=== PATIENT | female | born 1950 | race Caucasian/White ===

== ENCOUNTER 2018-01-02 01:45 | Inpatient (IN) ==
[2018-01-02] MEDS ORDERED: OXYCODONE Oral CONC 10 MG/0.5 ML ORAL.SYG SL PRN ×2 (04:44)
[2018-01-02] MEDS ORDERED: Naloxone 0.4 MG/ML INJ IVP PRN (04:44)
[2018-01-02] MEDS ORDERED: D5% in Water 1,000 ML IVC PRN (04:50)
[2018-01-02] MEDS ORDERED: *HR* Dextrose 50 % in Water (Syg) 50 ML SYRINGE IVP PRN (04:50)
[2018-01-02] MEDS ORDERED: Dextrose Gel 15 GM/37.5 ML TUBE PO PRN ×2 (04:50)
[2018-01-02] MEDS ORDERED: Nitroglycerin 0.4 MG TAB.SUBL SL PRN (04:51)
--- NOTE | 2018-01-02 05:05 | Internal Med History&Physical ---
Date of Encounter: 01/02/18 Time of Encounter: 16:20 Internal Medicine - H&P: HPI Chief complaint: Left hip pain Admitted From: Home Plans for Post Hospital Care: Transfer Inp Rehab Fac History of present illness: Ms. Reid is a 67 year old female transferred from [facility] ER for left hip pain. Past medical history is significant for CHF, diabetes, CKD, hypertension, CAD S/P stent, melanoma S/P surgery. Patient said he had a mechanical fall today and feels left hip pain afterwards. Patient denies loss of consciousness. She denies head or neck injury. She also has some bruises on left shoulder area, the range of left shoulder movement is wnl. Patient has mild nausea but no vomiting. Patient also complaining of mild chest pain/discomfort. She denies shortness of breath. She denies fever. In [facility] ER, XR shows left hip fracture. Orthopedic consult was called and the patient was transferred to our hospital for further management. Past Med Surg Social Fam HX - Past Medical History Medical history: arthritis, cancer, CHF, diabetes, hyperlipidemia, hypertension Psychiatric history: depression - Past Surgical History Surgical History: cancer surgery, cholecystectomy, hysterectomy, orthopedic, other - Social History Smoking Status: Never smoker Smokeless Tobacco Status: No Alcohol use: none Drug use: none - Family History Mother Living Status: Age at : 65 Cause of : breast cancer Hx Family Cardiac Disorders: Yes Hx Family Cancer: Yes (Breast Ca) Father Living Status: Age at : 53 Cause of : [place] Hx Family Cardiac Disorders: Yes Hx Family Respiratory Disorders: Yes Sister Living Status: Age at : 49 Cause of : ovarian cancer Hx Family Cancer: Yes (ovarian cancer) Internal Medicine - H&P: Meds Lactobacillus Acidophilus [Acidophilus] 1 each PO DAILY 03/22/16 [History] Amlodipine Besylate 10 mg PO DAILY 03/23/16 [History] Aspirin Enteric Coated [Aspirin EC] 81 mg PO DAILY 03/23/16 [History] Atorvastatin [Lipitor] 40 mg PO DAILY 03/23/16 [History] Carvedilol 12.5 mg PO BID 03/23/16 [History] Lisinopril [Zestril] 40 mg PO DAILY 03/23/16 [History] Spironolactone [Aldactone] 25 mg PO DAILY 03/23/16 [History] Biotin 1,000 mcg PO DAILY 06/24/17 [History] Escitalopram [Lexapro] 20 mg PO DAILY 06/24/17 [History] Gabapentin [Neurontin] 100 mg PO HS 06/24/17 [History] Pioglitazone [Actos] 30 mg PO DAILY 06/24/17 [History] Nitroglycerin [Nitrostat] 0.4 mg SL PRN PRN #30 tab.subl 06/25/17 [Rx] Ticagrelor [Brilinta] 90 mg PO BID #60 tablet 06/25/17 [Rx] Furosemide [Lasix] 40 mg PO DAILY 01/02/18 [History] 3 Allergy/AdvReac Type Severity Reaction Status Date / Time cefdinir [From Omnicef] Allergy Itching Verified 06/25/17 07:21 codeine Allergy Hives Verified 03/22/16 15:27 morphine Allergy Hives Verified 03/22/16 15:27 ondansetron Allergy Vomiting Verified 06/25/17 07:20 [From Zofran (as hydrochloride)] acetaminophen [From Tylenol] AdvReac Vomiting Verified 03/22/16 15:27 All Systems PM: A 10-system review of systems was performed and is negative for pertinent findings except as documented above in the HPI. - Constitutional Vitals: Temp Pulse Resp BP Pulse Ox 97.7 F 63 15 206/65 92 01/02/18 03:42 01/02/18 03:42 01/02/18 03:42 01/02/18 03:42 01/02/18 03:42 General appearance: Present: A&O X 3, no acute distress, answers questions appropriately - Head Head exam: Present: atraumatic, normocephalic - Eye Eye exam: Present: PERRL, conjuntiva pink, sclera anicteric Pupils: Present: PERRL - Neck Neck exam general surgery: Present: supple, trachea midline. Absent: lymphadenopathy - Respiratory Respiratory exam: Present: CTAB. Absent: accessory muscle use, rales, rhonchi, wheezes - Cardiovascular Cardiovascular exam: Present: RRR, +S1, +S2. Absent: diastolic murmur, gallop, rubs, systolic murmur - GI/Abdominal GI/Abdominal exam: Present: normal bowel sounds, soft, no peritoneal signs. Absent: distended, tenderness - Extremities Exam Extremities exam: Present: warm, radial pulses palpable and symmetrical. Absent : calf tenderness, cyanotic, pedal edema Additional comments: Left leg ROM is limited due to pain - Neurological Exam Neurological exam: Present: CN II-XII intact, oriented X3, no focal deficits. Absent: pronater drift, facial droop, speech deficit - Skin Skin exam: Present: dry, intact Internal Med - H&P Results - EKG Data -: EKG Interpreted by Myself EKG shows normal: sinus rhythm Rate: normal - Assessment and plan (1) Hip fracture, left Current Visit: Yes Status: Acute Assessment and plan: Patient has a mechanical fall. Has left hip fracture. Will consult orthopedic. May need surgery. - Keep patient nothing by mouth, IV fluid, pain medications - Patient has complicated cardiology issues and current chest discomfort, will consult cardiology before surgery for risk evaluation. Qualifiers: Encounter type: initial encounter Fracture type: closed Qualified Code(s) : S72.002A - Fracture of unspecified part of neck of left femur, initial encounter for closed fracture (2) CAD (coronary artery disease) Current Visit: No Status: Acute Assessment and plan: S/P recent stent. Patient complaint of chest discomfort. - Continuous cardiac monitoring - Troponin - Cardiac consult, further management/workup per cardiac recommendation Qualifiers: Coronary Disease-Associated Artery/Lesion type: [place] artery [place] vs. transplanted heart: [place] heart Associated angina: without angina Qualified Code(s): I25.10 - Atherosclerotic heart disease of [place] coronary artery without angina pectoris (3) DVT prophylaxis Current Visit: No Status: Acute Assessment and plan: EPCD, may start anticoagulation after surgery (4) Diabetes mellitus type 2, noninsulin dependent Current Visit: No Status: Acute Assessment and plan: Place patient on sliding scale insulin (5) Hypertension Current Visit: No Status: Acute Assessment and plan: Continue home medications. Hydralazine IV when necessary. Control pain to decrease the stress Qualifiers: Hypertension type: essential hypertension Qualified Code(s): I10 - Essential (primary) hypertension - Time Spent With Patient Total time spent is greater than 50% in coordination of care (as documented) at patient's floor/unit and/or counseling patient: 40 minutes Greater than 35 minutes
[2018-01-02 05:06] LABS: Basophils # 0.1 K/mcL (0.0-0.2); Basophils % 0.7 %; Eosinophils # 0.1 K/mcL (0.0-0.6); Eosinophils % 0.8 %; Hemoglobin 10.1 g/dL (11.5-15.4); Immature Granulocytes % 0.4 % (0-4); Lymphocytes # 0.8 K/mcL (0.6-4.6); Lymphocytes % 8.3 %; Mean Corpuscular HGB Conc 29.7 g/dL (31.6-35.5); Mean Corpuscular Hemoglobin 27.2 pg (28.0-33.3); Mean Corpuscular Volume 91.4 fL (83.0-100.0); Mean Platelet Volume 11.3 fL (9.4-12.4); Monocytes # 0.6 K/mcL (0.0-1.3); Monocytes % 5.7 %; Neutrophils # 8.3 K/mcL (1.6-8.9); Platelet Count 235 K/mcL (140-400); Red Blood Count 3.72 M/mcL (3.82-4.97); Red Cell Distribution Width 15.6 % (11.5-14.5); Segmented Neutrophils % 84.1 %
[2018-01-02 05:27] LABS: Alanine Aminotransferase 19 Units/L (7-52); Albumin 3.6 g/dL (3.5-5.7); Albumin/Globulin Ratio 1.2 (1.1-2.2); Alkaline Phosphatase 90 Units/L (34-104); Aspartate Amino Transferase 33 Units/L (13-39); BUN/Creatinine Ratio 24 (6-26); Bilirubin,Total 0.6 mg/dL (0.3-1.0); Blood Urea Nitrogen 19 mg/dL (8-23); Calcium 10.5 mg/dL (8.6-10.3); Carbon Dioxide 25 mEq/L (23-29); Chloride 108 mEq/L (98-107); Globulin 2.9 g/dL (2.4-3.5); Glucose 212 mg/dL (70-105); Osmolality,Calculated 303 (280-300); Potassium 4.1 mEq/L (3.5-5.1); Sodium 142 mEq/L (136-145); Total Protein 6.5 g/dL (6.4-8.9); eGFR For African Americans > 60 (> 60); eGFR For Non-African Americans > 60 (> 60)
[2018-01-02 05:28] LABS: Troponin I < 0.03 ng/mL (< 0.04)
[2018-01-02] MEDS: Insulin LISPRO 300 UNITS/3 ML VIAL SQ SCH ×3 (06:10→17:58)
[2018-01-02] MEDS: 0.9 % Sodium Chloride 1,000 ML IVC SCH ×2 (06:11→17:53)
--- NOTE | 2018-01-02 07:52 | Orthopedic Consult Note ---
Date of Encounter: 01/02/18 Time of Encounter: 07:51 History of Present Illness HPI: Ms. Reid is a 67 year old female Status post slip and fall on a wet surface injuring left hip. Patient reports no head trauma. Complains of left hip pain and inability to family. Past medical history is significant for cardiac stent placement June 2017. 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 Physical exam Alert and oriented 3 Left lower extremity Neurovascular intact Decreased range of motion motion secondary to pain X-rays reviewed displaced comminuted intertrochanteric left hip fracture. Recommendation after patient medically cleared left hip open reduction intramedullary nail fixation. We reviewed the risks and benefits as well as recovery. All questions were answered. The patient agreed to this treatment plan and appeared to understand the plan is reviewed. Past Med Surg Social Fam HX - Past Medical History Medical history: arthritis, cancer, CHF, diabetes, hyperlipidemia, hypertension Psychiatric history: depression - Past Surgical History Surgical History: cancer surgery, cholecystectomy, hysterectomy, orthopedic, other - Social History Smoking Status: Never smoker Smokeless Tobacco Status: No Alcohol use: none Drug use: none - Family History Mother Living Status: Age at : 65 Cause of : breast cancer Hx Family Cardiac Disorders: Yes Hx Family Cancer: Yes (Breast Ca) Father Living Status: Age at : 53 Cause of : [place] Hx Family Cardiac Disorders: Yes Hx Family Respiratory Disorders: Yes Sister Living Status: Age at : 49 Cause of : ovarian cancer Hx Family Cancer: Yes (ovarian cancer) Medications and Allergies Lactobacillus Acidophilus [Acidophilus] 1 each PO DAILY 03/22/16 [History] Amlodipine Besylate 10 mg PO DAILY 03/23/16 [History] Aspirin Enteric Coated [Aspirin EC] 81 mg PO DAILY 03/23/16 [History] Atorvastatin [Lipitor] 40 mg PO DAILY 03/23/16 [History] Carvedilol 12.5 mg PO BID 03/23/16 [History] Lisinopril [Zestril] 40 mg PO DAILY 03/23/16 [History] Spironolactone [Aldactone] 25 mg PO DAILY 03/23/16 [History] Biotin 1,000 mcg PO DAILY 06/24/17 [History] Escitalopram [Lexapro] 20 mg PO DAILY 06/24/17 [History] Gabapentin [Neurontin] 100 mg PO HS 06/24/17 [History] Pioglitazone [Actos] 30 mg PO DAILY 06/24/17 [History] Nitroglycerin [Nitrostat] 0.4 mg SL PRN PRN #30 tab.subl 06/25/17 [Rx] Ticagrelor [Brilinta] 90 mg PO BID #60 tablet 06/25/17 [Rx] Furosemide [Lasix] 40 mg PO DAILY 01/02/18 [History] 3 Allergy/AdvReac Type Severity Reaction Status Date / Time cefdinir [From Omnicef] Allergy Itching Verified 06/25/17 07:21 codeine Allergy Hives Verified 03/22/16 15:27 morphine Allergy Hives Verified 03/22/16 15:27 ondansetron Allergy Vomiting Verified 06/25/17 07:20 [From Zofran (as hydrochloride)] acetaminophen [From Tylenol] AdvReac Vomiting Verified 03/22/16 15:27 All Systems Reviewed: The remainder of the systems were reviewed and are negative Physical Exam - Constitutional Vitals: Temp Pulse Resp BP Pulse Ox 97.9 F 95 16 198/65 96 01/02/18 07:29 01/02/18 07:29 01/02/18 07:29 01/02/18 07:29 01/02/18 07:29 Results - Labs Result Diagrams: 01/02/18 04:54 01/02/18 04:54 Labs: Abnormal lab results RBC 3.72 M/mcL (3.82-4.97) L 01/02/18 04:54 Hgb 10.1 g/dL (11.5-15.4) L 01/02/18 04:54 Hct 34.0 % (35.3-44.9) L 01/02/18 04:54 MCH 27.2 pg (28.0-33.3) L 01/02/18 04:54 MCHC 29.7 g/dL (31.6-35.5) L 01/02/18 04:54 RDW 15.6 % (11.5-14.5) H 01/02/18 04:54 Chloride 108 mEq/L (98-107) H 01/02/18 04:54 Glucose 212 mg/dL (70-105) H 01/02/18 04:54 Calculated Osmolality 303 (280-300) H 01/02/18 04:54 Calcium 10.5 mg/dL (8.6-10.3) H 01/02/18 04:54 B-Natriuretic Peptide 199 pg/mL (Less than 100) H 01/02/18 04:54 H & H 01/02/18 Range/Units 04:54 Hgb 10.1 L (11.5-15.4) g/dL Hct 34.0 L (35.3-44.9) % All other labs normal. Consult Discharge Plan - Plan Referrals: Stacy Barcenas, [employer] PICKER [Primary Care Provider] -
[2018-01-02] MEDS ORDERED: *HR* Promethazine 25 MG/ML VIAL IVP PRN ×2 (08:22→11:27)
--- NOTE | 2018-01-02 09:10 | Internal Med Progress Note ---
<Shankar Baxter - Last Filed: 01/02/18 10:10> Date of Encounter: 01/02/18 Time of Encounter: 09:08 - Assessment and plan (1) Hip fracture, left Current Visit: Yes Status: Acute Assessment and plan: Patient has a mechanical fall resulting in left hip fracture - Seen by orthopedic surgery recommend surgical intervention. - Keep patient nothing by mouth, IV fluid, pain medications - Patient has complicated cardiology issues and current chest discomfort, will await cardiology before surgery for risk evaluation. Qualifiers: Encounter type: initial encounter Fracture type: closed Qualified Code(s) : S72.002A - Fracture of unspecified part of neck of left femur, initial encounter for closed fracture (2) Diabetes mellitus type 2, noninsulin dependent Current Visit: No Status: Acute Assessment and plan: Glucose controlled on inpatient sliding scale low dose - No basal insulin while NPO - Monitor Q4hrs (3) Hypertension Current Visit: No Status: Acute Assessment and plan: Patient has baseline hypertension, elevation likely secondary to pain response. Continue home medications. Hydralazine IV when necessary. Control pain to decrease the stress Qualifiers: Hypertension type: essential hypertension Qualified Code(s): I10 - Essential (primary) hypertension (4) CAD (coronary artery disease) Current Visit: No Status: Acute Assessment and plan: S/P recent stent June 2017 (antiplatelet therapy includes Brillenta and aspirin). Patient complaint of chest discomfort. - Continuous cardiac monitoring - Troponin <0.03 - Cardiac consult, further management/workup per cardiac recommendation Will Need to restart Brillenta and ASA for RCA stent to reduce risk of stent rethrombosis. Qualifiers: Coronary Disease-Associated Artery/Lesion type: [place] artery [place] vs. transplanted heart: [place] heart Associated angina: without angina Qualified Code(s): I25.10 - Atherosclerotic heart disease of [place] coronary artery without angina pectoris (5) DVT prophylaxis Current Visit: No Status: Acute Assessment and plan: EPCD, may start anticoagulation after surgery (6) Left leg cellulitis Current Visit: Yes Status: Acute Assessment and plan: Distal left LE erythema and edema tender to palpation concerning for cellulitis. No abscess or open lesions. Plan: Allergy to Penicillins and Cephalosporins No known hx of MRSA, No purulent discharge. Start Doxycycline 100mg IV BID. - Time Spent With Patient Total time spent is greater than 50% in coordination of care (as documented) at patient's floor/unit and/or counseling patient: - Subjective Interval history: Seen and evaluated at bedside this morning, She is awake alert interactive and says that her left hip pain is 8/10 this morning. She is mildly nauseated but without vomiting this morning. Thorough discussion regarding her past surgical Hx. She had a hx of melanoma of the left distal LE and hx of left proximal humoral fx with previous surgical intervention. right distal humoral fx without intervention. Hx of ovarian cancer s/p resection and surgical site infection resulting in narcotizing wound infection requiring I&D of the abdominal wall. She had a cardiac catherization with LO x1 to the RCA and last echo with EF 65% . She has erythema around her left ankle which has been present for roughly 1 months duration with increasing warmth and tenderness. She denies loss of sensation or movement of her distal left LE. - Constitutional Vitals: Temp Pulse Resp BP Pulse Ox 97.9 F 95 16 198/65 96 01/02/18 07:29 01/02/18 07:29 01/02/18 07:29 01/02/18 07:29 01/02/18 07:29 General appearance: Present: A&O X 3, no acute distress, answers questions appropriately Exam: General: Patient alert, awake, oriented 3, interactive, in no acute distress HEENT: Normocephalic, atraumatic, pupils equal reactive to light, oral mucosa moist, neck supple trachea midline no palpable lymphadenopathy, no thyromegaly. Chest: Symmetric bilateral correlating with respiratory effort, effort nonlabored. Cardiac: Regular rate and rhythm, grade 2/6 systolic ejection murmur. Radial pulses 2+ bilateral, posterior tibial and dorsal pedal pulses 2+ bilateral. Respiratory: Clear to auscultation all lung [place] Abdomen: Soft, nontender, obese, post surgical scars and midline abdominal hernia. positive bowel sounds, no palpable masses appreciated on examination Extremities: LLE is shorter compared to the right. It is also externally rotated and tender to minimal rotation with thigh edema. Erythema and edema around the distal LLE concerning for cellulitis, Right LE has findings of dependent edema and venous stasis. Neurologic: No focal deficits appreciated on examination. Face symmetric, muscle strength symmetric bilateral upper and lower extremities. Internal Medicine: Result - Labs CBC & Chem 7: 01/02/18 04:54 01/02/18 04:54 Labs: Short CBC 01/02/18 Range/Units 04:54 WBC 9.9 (4.3-11.1) K/mcL Hgb 10.1 L (11.5-15.4) g/dL Hct 34.0 L (35.3-44.9) % Plt Count 235 (140-400) K/mcL Neutrophils # 8.3 (1.6-8.9) K/mcL BMP 01/02/18 04:54 Sodium 142 Potassium 4.1 Chloride 108 H Carbon Dioxide 25 BUN 19 Creatinine 0.79 Glucose 212 H Calcium 10.5 H Cardiac Enzymes 01/02/18 Range/Units 04:54 Troponin I < 0.03 (< 0.04) ng/mL Liver Function 01/02/18 Range/Units 04:54 Total Bilirubin 0.6 (0.3-1.0) mg/dL AST 33 (13-39) Units/L ALT 19 (7-52) Units/L Alkaline Phosphatase 90 (34-104) Units/L Albumin 3.6 (3.5-5.7) g/dL - Impressions Impressions Shoulder X-Ray 01/02/18 04:40 IMPRESSION: No acute findings. D/ / Paul Tim MD / Paul Tim MD Interpreting Provider: Paul Tim MD - VTE Documentation of Mechanical Device: Intermittent pneumatic compression device Consult Discharge Plan - Plan Referrals: Stacy Barcenas, [employer]ERSON [Primary Care Provider] - <Chip Harkins - Last Filed: 01/02/18 11:19> Date of Encounter: 01/02/18 - Assessment and plan (1) Diabetes mellitus type 2, noninsulin dependent Current Visit: No Status: Acute (2) Hypertension Current Visit: No Status: Acute Qualifiers: Hypertension type: essential hypertension Qualified Code(s): I10 - Essential (primary) hypertension (3) DVT prophylaxis Current Visit: No Status: Acute (4) CAD (coronary artery disease) Current Visit: No Status: Acute Qualifiers: Coronary Disease-Associated Artery/Lesion type: [place] artery [place] vs. transplanted heart: [place] heart Associated angina: without angina Qualified Code(s): I25.10 - Atherosclerotic heart disease of [place] coronary artery without angina pectoris (5) Hip fracture, left Current Visit: Yes Status: Acute Qualifiers: Encounter type: initial encounter Fracture type: closed Qualified Code(s) : S72.002A - Fracture of unspecified part of neck of left femur, initial encounter for closed fracture (6) Left leg cellulitis Current Visit: Yes Status: Acute - Time Spent With Patient Total time spent is greater than 50% in coordination of care (as documented) at patient's floor/unit and/or counseling patient: - Constitutional Vitals: Temp Pulse Resp BP Pulse Ox 97.9 F 80 16 171/66 94 01/02/18 07:29 01/02/18 09:48 01/02/18 07:29 01/02/18 09:48 01/02/18 09:48 Internal Medicine: Result - Labs CBC & Chem 7: 01/02/18 04:54 01/02/18 04:54 Labs: Short CBC 01/02/18 Range/Units 04:54 WBC 9.9 (4.3-11.1) K/mcL Hgb 10.1 L (11.5-15.4) g/dL Hct 34.0 L (35.3-44.9) % Plt Count 235 (140-400) K/mcL Neutrophils # 8.3 (1.6-8.9) K/mcL BMP 01/02/18 04:54 Sodium 142 Potassium 4.1 Chloride 108 H Carbon Dioxide 25 BUN 19 Creatinine 0.79 Glucose 212 H Calcium 10.5 H Cardiac Enzymes 01/02/18 Range/Units 04:54 Troponin I < 0.03 (< 0.04) ng/mL Liver Function 01/02/18 Range/Units 04:54 Total Bilirubin 0.6 (0.3-1.0) mg/dL AST 33 (13-39) Units/L ALT 19 (7-52) Units/L Alkaline Phosphatase 90 (34-104) Units/L Albumin 3.6 (3.5-5.7) g/dL - Impressions Impressions Shoulder X-Ray 01/02/18 04:40 IMPRESSION: No acute findings. D/ / Paul Tim MD / Paul Tim MD Interpreting Provider: Paul Tim MD - Attending Attestation Left hip fracture Orthopedic surgery to decide on possible surgery Left lower extremity cellulitis start Doxycycline intractable nausea, increase dose of phenergham I examined this patient and my medical decision-making was reviewed with the Resident Physician. I agree with the documented findings, disposition and treatment plan as described except to the extent set forth below.
[2018-01-02] MEDS: Furosemide 40 MG TABLET PO SCH (11:57)
[2018-01-02] MEDS: Lisinopril 20 MG TABLET PO SCH (11:57)
[2018-01-02] MEDS: Lactobacillus 1 EACH CAP.SPRINK PO SCH (11:57)
[2018-01-02 13:29] LABS: Hematocrit 31.5 % (35.3-44.9); Hemoglobin 9.8 g/dL (11.5-15.4)
[2018-01-02] MEDS: Ketorolac 15 MG/ML VIAL IVP PRN (16:26)
[2018-01-02] MEDS: Doxycycline 100 MG in 0.9 % Sodium Chloride Mini Bag 100 ML IVPB SCH (17:53)
--- NOTE | 2018-01-02 20:26 | Cardiology Consult Note ---
Date of Encounter: 01/02/18 Time of Encounter: 10:35 Assessment and Plan (1) Stable angina pectoris Current Visit: Yes Status: Chronic Stable class 1 angina post PCI with LO distal RCA 07/06/17, with resolution of exertional chest pain following percutaneous revascularization, continues on dual antiplatelet tx thru , (2) CAD (coronary artery disease) Current Visit: No Status: Chronic Severe single vessel CAD, post PCI RCA 06/2017 Qualifiers: Coronary Disease-Associated Artery/Lesion type: [place] artery [place] vs. transplanted heart: [place] heart Associated angina: with stable angina Qualified Code(s): I25.118 - Atherosclerotic heart disease of [place] coronary artery with other forms of angina pectoris (3) Hip fracture, left Current Visit: Yes Status: Acute Anticpate surgical correction MON., pt is at moderate cardiovascular risk for planned procedure, long conversation with pt and daughter at bedside, understand and accept risk as risk benefit ratio favors proceeding with planned surgical repair as compared to six weeks of bed rest. Qualifiers: Encounter type: initial encounter Fracture type: closed Qualified Code(s) : S72.002A - Fracture of unspecified part of neck of left femur, initial encounter for closed fracture (4) Hypertension Current Visit: No Status: Chronic Adequately controlled on current medications. Qualifiers: Hypertension type: essential hypertension Qualified Code(s): I10 - Essential (primary) hypertension (5) Diabetes mellitus type 2, noninsulin dependent Current Visit: No Status: Chronic Blood sugars appear fairly well controlled, primary service monitoring. Discussion w patient/family: The assessment and plan as outlined above was discussed with the patient and/or family members who expressed understanding and agreement. All questions were answered. Thank you for involving us in the care of your patient. Please call with any questions. History of Present Illness Consult date: 01/02/18 Requesting physician: Chip Harkins Consult reason: Cardiac risk stratification Chief complaint: left hip pain History of present illness: Ms. Reid is a 67 year old female who had a mechanical fall at home, unable to stand, with immediate severe 10/10 pain in left hip. She was transported to [facility] by squad, found to have a left hip fracture, and transferred to [facility] for further evaluation in anticipation of surgical hip repair. She reports mild left sided chest pain since the fall, notes landed on left shoulder, which resolves with positional changes. She also reports mid sternal chest pain, severe 04/29, provoked by exercise, accompanied by shortness of breath and diaphoresis, lasting up to ten minutes, relieved with rest or SL ntg resolved following PCI with LO 06/2017. She reports is compliant with medication, now on Plavix, Brillinta stopped due to shortness of breath. Past Med Surg Social Fam HX - Past Medical History Medical history: arthritis, cancer, CHF, coronary artery disease, diabetes, hyperlipidemia, hypertension, myocardial infarction Psychiatric history: depression - Past Surgical History Surgical History: cancer surgery, cholecystectomy, hysterectomy, orthopedic, other - Social History Smoking Status: Never smoker Smokeless Tobacco Status: No Alcohol use: none Drug use: none - Family History Mother Living Status: Age at : 65 Cause of : breast cancer Hx Family Cardiac Disorders: Yes Hx Family Cancer: Yes (Breast Ca) Father Living Status: Age at : 53 Cause of : AL Hx Family Cardiac Disorders: Yes Hx Family Respiratory Disorders: Yes Sister Living Status: Age at : 49 Cause of : ovarian cancer Hx Family Cancer: Yes (ovarian cancer) Medications and Allergies Lactobacillus Acidophilus [Acidophilus] 1 each PO DAILY 03/22/16 [History] Aspirin Enteric Coated [Aspirin EC] 81 mg PO DAILY 03/23/16 [History] Atorvastatin [Lipitor] 40 mg PO DAILY 03/23/16 [History] Carvedilol 12.5 mg PO BID 03/23/16 [History] Lisinopril [Zestril] 40 mg PO DAILY 03/23/16 [History] Spironolactone [Aldactone] 25 mg PO DAILY 03/23/16 [History] Biotin 1,000 mcg PO DAILY 06/24/17 [History] Escitalopram [Lexapro] 20 mg PO DAILY 06/24/17 [History] Gabapentin [Neurontin] 100 mg PO HS 06/24/17 [History] Pioglitazone [Actos] 30 mg PO DAILY 06/24/17 [History] Nitroglycerin [Nitrostat] 0.4 mg SL PRN PRN #30 tab.subl 06/25/17 [Rx] Alendronate Sodium [Fosamax] 70 mg PO QWEEK 01/02/18 [History] Clopidogrel [Plavix] 75 mg PO DAILY 01/02/18 [History] Furosemide [Lasix] 40 mg PO DAILY 01/02/18 [History] Potassium Chloride [K-Tab ER] 20 meq PO DAILY 01/02/18 [History] 3 Allergy/AdvReac Type Severity Reaction Status Date / Time cefdinir [From Omnicef] Allergy Itching Verified 06/25/17 07:21 codeine Allergy Hives Verified 03/22/16 15:27 morphine Allergy Hives Verified 03/22/16 15:27 ondansetron Allergy Vomiting Verified 06/25/17 07:20 [From Zofran (as hydrochloride)] acetaminophen [From Tylenol] AdvReac Vomiting Verified 03/22/16 15:27 All Systems Review: The remainder of the systems were reviewed and are negative - Constitutional Constitutional: fatigue - Cardiovascular Cardiovascular: chest pain at rest (new positional chest pain, relieved with movement.) - Musculoskeletal Musculoskeletal: other Physical Examination Vital Signs, Last 4 Hours Temp Pulse Resp BP Pulse Ox 01/02/18 19:44 95 01/02/18 18:36 99.8 F H 80 16 154/61 95 General: Conversant, No Apparent Distress HEENT: Atraumatic, Normocephaly, Mucus Membranes Moist Neck: Normal carotid pulses Cardiac: Reg Rate and Rhythm, Normal S1 and S2, No Murmur Lungs: Normal Breath Sounds, No Wheeze, Rales, Rhonchi (poor inspiratory effort) Neuro: Alert and responsive, No focal deficits noted Abdomen: Non-Tender (morbidly obese) Skin: No rashes noted on visualized skin Musculoskeletal: Other (left leg slightly shortened, externally rotated, unable to move left hip without pain. ) Extremities: No Clubbing, No Cyanosis, No Edema, Normal Pulses Results 01/02/18 13:14 01/02/18 04:54 Lab Results 01/02/18 01/02/18 01/02/18 04:54 04:54 04:54 WBC 9.9 Hgb 10.1 L Hct 34.0 L Plt Count 235 Sodium 142 Potassium 4.1 Chloride 108 H Carbon Dioxide 25 BUN 19 Creatinine 0.79 Glucose 212 H Calcium 10.5 H Total Bilirubin 0.6 AST 33 ALT 19 Alkaline Phosphatase 90 Troponin I < 0.03 B-Natriuretic Peptide 199 H 01/02/18 13:14 WBC Hgb 9.8 L Hct 31.5 L Plt Count Sodium Potassium Chloride Carbon Dioxide BUN Creatinine Glucose Calcium Total Bilirubin AST ALT Alkaline Phosphatase Troponin I B-Natriuretic Peptide - EKG Interpretation EKG results cardiology: personally reviewed Consult Discharge Plan - Plan Referrals: Stacy Barcenas CNP [Primary Care Provider] -
[2018-01-03] MEDS: Ketorolac 15 MG/ML VIAL IVP PRN ×4 (00:04→23:44)
[2018-01-03] MEDS: Insulin LISPRO 300 UNITS/3 ML VIAL SQ SCH ×4 (00:12→16:44)
[2018-01-03 01:26] LABS: Basophils % 0.5 %; Eosinophils # 0.1 K/mcL (0.0-0.6); Eosinophils % 0.6 %; Hematocrit 29.8 % (35.3-44.9); Hemoglobin 9.1 g/dL (11.5-15.4); Immature Granulocytes % 0.6 % (0-4); Lymphocytes # 1.6 K/mcL (0.6-4.6); Lymphocytes % 18.8 %; Mean Corpuscular HGB Conc 30.5 g/dL (31.6-35.5); Mean Corpuscular Hemoglobin 27.4 pg (28.0-33.3); Mean Corpuscular Volume 89.8 fL (83.0-100.0); Mean Platelet Volume 11.4 fL (9.4-12.4); Monocytes # 0.9 K/mcL (0.0-1.3); Monocytes % 10.5 %; Neutrophils # 5.8 K/mcL (1.6-8.9); Platelet Count 217 K/mcL (140-400); Red Blood Count 3.32 M/mcL (3.82-4.97); Red Cell Distribution Width 15.8 % (11.5-14.5)
[2018-01-03 01:46] LABS: Alanine Aminotransferase 14 Units/L (7-52); Albumin 3.1 g/dL (3.5-5.7); Albumin/Globulin Ratio 1.2 (1.1-2.2); Alkaline Phosphatase 73 Units/L (34-104); Aspartate Amino Transferase 18 Units/L (13-39); BUN/Creatinine Ratio 22 (6-26); Bilirubin,Total 0.7 mg/dL (0.3-1.0); Blood Urea Nitrogen 21 mg/dL (8-23); Calcium 9.9 mg/dL (8.6-10.3); Carbon Dioxide 25 mEq/L (23-29); Chloride 112 mEq/L (98-107); Globulin 2.5 g/dL (2.4-3.5); Glucose 152 mg/dL (70-105); Osmolality,Calculated 298 (280-300); Potassium 3.9 mEq/L (3.5-5.1); Sodium 141 mEq/L (136-145); Total Protein 5.6 g/dL (6.4-8.9); eGFR For African Americans > 60 (> 60); eGFR For Non-African Americans 58 (> 60)
[2018-01-03] MEDS: Doxycycline 100 MG in 0.9 % Sodium Chloride Mini Bag 100 ML IVPB SCH ×2 (05:57→16:44)
--- NOTE | 2018-01-03 06:19 | Orthopedics Progress Note ---
Date of Encounter: 01/03/18 Time of Encounter: 06:19 Subjective Interval history: Patient seen this morning for left hip surgery questions answered. Objective Vital signs: Vital Signs Temp Pulse Resp BP Pulse Ox 01/03/18 03:57 98.6 F 69 16 174/67 93 01/02/18 23:38 98.9 F 81 22 185/64 94 01/02/18 19:44 95 01/02/18 18:36 99.8 F H 80 16 154/61 95 01/02/18 16:02 98.8 F 80 16 165/61 93 01/02/18 11:47 98.5 F 78 16 169/73 95 01/02/18 09:48 80 171/66 94 01/02/18 07:29 97.9 F 95 16 198/65 96 Intake and Output 01/02/18 01/02/18 01/03/18 15:59 23:59 07:59 Intake Total 1490 / 1490 0 / 0 Output Total 0 / 0 125 / 125 Balance 1490 / 1490 -125 / -125 Intake: IV Fluids 1100 / 1100 0.9 % Sodium Chloride 1,000 ML 1000 / 1000 @ 90 mls/hr IVC .[id number] SHANI Rx# :[id number] Doxycycline 100 MG In 0.9 % 100 / 100 Sodium Chloride (Mini-Bag +) 100 ML @ 100 mls/hr IVPB Q12HR SHANI Rx#:[id number] Oral 390 / 390 0 / 0 Output: Urine 0 / 0 125 / 125 Other: Meal Lunch Dinner Percent of Meal Consumed 0% 15% # Voids 2 Blood Glucose* 163 192 133 - Labs CBC & BMP: 01/03/18 01:06 01/03/18 01:06 Labs: Abnormal lab results RBC 3.32 M/mcL (3.82-4.97) L 01/03/18 01:06 Hgb 9.1 g/dL (11.5-15.4) L 01/03/18 01:06 Hct 29.8 % (35.3-44.9) L 01/03/18 01:06 MCH 27.4 pg (28.0-33.3) L 01/03/18 01:06 MCHC 30.5 g/dL (31.6-35.5) L 01/03/18 01:06 RDW 15.8 % (11.5-14.5) H 01/03/18 01:06 Chloride 112 mEq/L (98-107) H 01/03/18 01:06 Est GFR (Non-Af Amer) 58 (> 60) L 01/03/18 01:06 Glucose 152 mg/dL (70-105) H 01/03/18 01:06 POC Glucose 133 mg/dL (70-99) H 01/03/18 05:50 B-Natriuretic Peptide 199 pg/mL (Less than 100) H 01/02/18 04:54 Serum Total Protein 5.6 g/dL (6.4-8.9) L 01/03/18 01:06 Albumin 3.1 g/dL (3.5-5.7) L 01/03/18 01:06 - VTE Documentation of Mechanical Device: Intermittent pneumatic compression device Consult Discharge Plan - Plan Referrals: Stacy Barcenas, [employer] [Primary Care Provider] -
[2018-01-03] MEDS: Lisinopril 20 MG TABLET PO SCH (07:23)
[2018-01-03] MEDS: Furosemide 40 MG TABLET PO SCH (07:23)
[2018-01-03] MEDS: Lactobacillus 1 EACH CAP.SPRINK PO SCH (07:24)
--- NOTE | 2018-01-03 09:12 | Internal Med Progress Note ---
<Norris Valdez - Last Filed: 01/03/18 10:51> Date of Encounter: 01/03/18 Time of Encounter: 09:12 - Assessment and plan (1) Hip fracture, left Current Visit: Yes Status: Acute Assessment and plan: Patient has a mechanical fall resulting in left hip fracture as demonstrated on Xray. - Seen by orthopedic surgery recommend surgical intervention this evening. - Keep patient nothing by mouth, IV fluid, pain medications - Patient has complicated cardiology issues and current chest discomfort, cardiology has evaluated as below. Qualifiers: Encounter type: initial encounter Fracture type: closed Qualified Code(s) : S72.002A - Fracture of unspecified part of neck of left femur, initial encounter for closed fracture (2) Diabetes mellitus type 2, noninsulin dependent Current Visit: Yes Status: Chronic Assessment and plan: Glucose controlled on inpatient sliding scale low dose - No basal insulin while NPO - Monitor Q4hrs (3) Hypertension Current Visit: Yes Status: Chronic Assessment and plan: Patient has baseline hypertension, elevation likely secondary to pain response. Most recent BP was 164/73 this morning. Will allow for mildly elevated BP today as she is going to be sedated this evening and at risk for hypotension. Hydralazine IV when necessary. Control pain to decrease the stress Qualifiers: Hypertension type: essential hypertension Qualified Code(s): I10 - Essential (primary) hypertension (4) CAD (coronary artery disease) Current Visit: Yes Status: Chronic Assessment and plan: S/P recent stent June 2017 (antiplatelet therapy includes Brillenta and aspirin). Chest discomfort resolved. - Continuous cardiac monitoring - Troponin <0.03 - Cardiac consult, agree to proceed with surgery, moderate risk which has been explained to the patient. Will Need to restart Brillenta and ASA for RCA stent to reduce risk of stent rethrombosis after surgery. Qualifiers: Coronary Disease-Associated Artery/Lesion type: [place] artery [place] vs. transplanted heart: [place] heart Associated angina: with stable angina Qualified Code(s): I25.118 - Atherosclerotic heart disease of [place] coronary artery with other forms of angina pectoris (5) DVT prophylaxis Current Visit: Yes Status: Acute Assessment and plan: EPCD, may start anticoagulation after surgery (6) Left leg cellulitis Current Visit: Yes Status: Acute Assessment and plan: Distal left LE erythema and edema tender to palpation concerning for cellulitis. No abscess or open lesions. 01/03: Erythema improved. Continue doxycycline. Plan: Allergy to Penicillins and Cephalosporins No known hx of MRSA, No purulent discharge. Start Doxycycline 100mg IV BID. - Time Spent With Patient Total time spent is greater than 50% in coordination of care (as documented) at patient's floor/unit and/or counseling patient: 25 - 35 minutes - Subjective Interval history: Patient seen and examined at bedside. She states that overall she is feeling better but is continuing to have pain when she gets up to use the restroom. No further complaints. At rest, pain is 1/10. She is scheduled for surgery this evening. No further complaints of CP, SOB, n/v, fevers, chills. - Constitutional Vitals: Temp Pulse Resp BP Pulse Ox 98.5 F 73 16 164/73 95 01/03/18 07:00 01/03/18 07:00 01/03/18 07:00 01/03/18 07:00 01/03/18 07:00 General appearance: Present: A&O X 3, no acute distress, answers questions appropriately Exam: Gen.: Vitals noted. No acute distress. AAOx3 HEENT: oropharynx clear, Normocephalic, atraumatic, MMM Cardiac: RRR, holosystolic murmur present, +S1/S2 Pulmonary: CTA bilaterally, no wheezes, rales or rhonchi, equal chest expansion Abdomen: soft, nontender, BS noted, no guarding, no rebound. MSK: ROM not tested due to known fracture. Mildly tender to palpation over left hip. no joint swelling noted Extremities: no BLE edema, nontender calf, no cyanosis or clubbing Neuro: A&Ox3, moves all extremities, no focal deficits Psych: Appropriate mood and behavior Internal Medicine: Result - Labs CBC & Chem 7: 01/03/18 01:06 01/03/18 01:06 Labs: Short CBC 01/02/18 01/03/18 Range/Units 13:14 01:06 WBC 8.3 (4.3-11.1) K/mcL Hgb 9.8 L 9.1 L (11.5-15.4) g/dL Hct 31.5 L 29.8 L (35.3-44.9) % Plt Count 217 (140-400) K/mcL Neutrophils # 5.8 (1.6-8.9) K/mcL BMP 01/03/18 01:06 Sodium 141 Potassium 3.9 Chloride 112 H Carbon Dioxide 25 BUN 21 Creatinine 0.96 Glucose 152 H Calcium 9.9 Liver Function 01/03/18 Range/Units 01:06 Total Bilirubin 0.7 (0.3-1.0) mg/dL AST 18 (13-39) Units/L ALT 14 (7-52) Units/L Alkaline Phosphatase 73 (34-104) Units/L Albumin 3.1 L (3.5-5.7) g/dL - VTE Documentation of Mechanical Device: Intermittent pneumatic compression device Consult Discharge Plan - Plan Referrals: Stacy Barcenas, [employer] [Primary Care Provider] - <Chip Harkins - Last Filed: 01/03/18 13:02> Date of Encounter: 01/03/18 - Assessment and plan (1) Diabetes mellitus type 2, noninsulin dependent Current Visit: Yes Status: Chronic (2) Hypertension Current Visit: Yes Status: Chronic Qualifiers: Hypertension type: essential hypertension Qualified Code(s): I10 - Essential (primary) hypertension (3) DVT prophylaxis Current Visit: Yes Status: Acute (4) CAD (coronary artery disease) Current Visit: Yes Status: Chronic Qualifiers: Coronary Disease-Associated Artery/Lesion type: [place] artery [place] vs. transplanted heart: [place] heart Associated angina: with stable angina Qualified Code(s): I25.118 - Atherosclerotic heart disease of [place] coronary artery with other forms of angina pectoris (5) Hip fracture, left Current Visit: Yes Status: Acute Qualifiers: Encounter type: initial encounter Fracture type: closed Qualified Code(s) : S72.002A - Fracture of unspecified part of neck of left femur, initial encounter for closed fracture (6) Left leg cellulitis Current Visit: Yes Status: Acute - Time Spent With Patient Total time spent is greater than 50% in coordination of care (as documented) at patient's floor/unit and/or counseling patient: - Constitutional Vitals: Temp Pulse Resp BP Pulse Ox 98.2 F 78 16 156/78 96 01/03/18 09:40 01/03/18 09:40 01/03/18 09:40 01/03/18 09:40 01/03/18 09:40 Internal Medicine: Result - Labs CBC & Chem 7: 01/03/18 01:06 01/03/18 01:06 Labs: Short CBC 01/02/18 01/03/18 Range/Units 13:14 01:06 WBC 8.3 (4.3-11.1) K/mcL Hgb 9.8 L 9.1 L (11.5-15.4) g/dL Hct 31.5 L 29.8 L (35.3-44.9) % Plt Count 217 (140-400) K/mcL Neutrophils # 5.8 (1.6-8.9) K/mcL BMP 01/03/18 01:06 Sodium 141 Potassium 3.9 Chloride 112 H Carbon Dioxide 25 BUN 21 Creatinine 0.96 Glucose 152 H Calcium 9.9 Liver Function 01/03/18 Range/Units 01:06 Total Bilirubin 0.7 (0.3-1.0) mg/dL AST 18 (13-39) Units/L ALT 14 (7-52) Units/L Alkaline Phosphatase 73 (34-104) Units/L Albumin 3.1 L (3.5-5.7) g/dL - Attending Attestation Left hip fracture Orthopedic surgery to perform surgery today Left lower extremity cellulitis continue Doxycycline day #2 intractable nausea, increase dose of phenergham I examined this patient and my medical decision-making was reviewed with the Resident Physician. I agree with the documented findings, disposition and treatment plan as described except to the extent set forth below.
--- NOTE | 2018-01-03 10:17 | Event Note ---
Date of Encounter: 01/03/18 Time of Encounter: 08:15 Discussed with patient at bedside planned surgical procedure and indications as well as risks and benefits. Patient verbalized understanding and intent to proceed with surgical intervention. Informed consent obtained. Kiah SCHROEDER present during this exchange as well. Patient alert and oriented to person, place, and time.
--- NOTE | 2018-01-03 18:47 | Anesthesia Evaluation PreOp ---
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 Other Medical History: Diabetes Type II, Other (Obese) Anesthesia History: No Prior Anesthetic Complications : No Alcohol Use: none Drug use: none Medications and Allergies Lactobacillus Acidophilus [Acidophilus] 1 each PO DAILY 03/22/16 [History] Aspirin Enteric Coated [Aspirin EC] 81 mg PO DAILY 03/23/16 [History] Atorvastatin [Lipitor] 40 mg PO DAILY 03/23/16 [History] Carvedilol 12.5 mg PO BID 03/23/16 [History] Lisinopril [Zestril] 40 mg PO DAILY 03/23/16 [History] Spironolactone [Aldactone] 25 mg PO DAILY 03/23/16 [History] Biotin 1,000 mcg PO DAILY 06/24/17 [History] Escitalopram [Lexapro] 20 mg PO DAILY 06/24/17 [History] Gabapentin [Neurontin] 100 mg PO HS 06/24/17 [History] Pioglitazone [Actos] 30 mg PO DAILY 06/24/17 [History] Nitroglycerin [Nitrostat] 0.4 mg SL PRN PRN #30 tab.subl 06/25/17 [Rx] Alendronate Sodium [Fosamax] 70 mg PO QWEEK 01/02/18 [History] Clopidogrel [Plavix] 75 mg PO DAILY 01/02/18 [History] Furosemide [Lasix] 40 mg PO DAILY 01/02/18 [History] Potassium Chloride [K-Tab ER] 20 meq PO DAILY 01/02/18 [History] 3 Allergy/AdvReac Type Severity Reaction Status Date / Time cefdinir [From Omnicef] Allergy Itching Verified 06/25/17 07:21 codeine Allergy Hives Verified 03/22/16 15:27 morphine Allergy Hives Verified 03/22/16 15:27 ondansetron Allergy Vomiting Verified 06/25/17 07:20 [From Zofran (as hydrochloride)] acetaminophen [From Tylenol] AdvReac Vomiting Verified 03/22/16 15:27 - Meds/Allergy Pre-op Review Medications Reviewed: Yes Allergies Reviewed: Yes Beta Blockers on Current Med List: Yes (Coreg today [id number]) Anesthesia Results - Labs 01/03/18 01:06 01/03/18 01:06 - Imaging EKG: report reviewed (Sinus Memo Borderline Left Axcis Deviation) Additional studies: EF 60-65%, moderate diastolic dysfunction, mild pulm htn Anesthesia Exam Vital Signs/O2 Sat/Glucose, Most Current Temp Pulse Resp BP Pulse Ox 01/03/18 15:00 98.8 F 58 18 184/68 98 Height: 5'7 Weight: 248 lbs NPO (# of Hours): MN Pain Scale: 0 - HEENT Pupil (Motor): Pupils equal, EOMI Mallampati: III Teeth: Edentulous (no upper dentition) Oral Opening: Less than or equal to 3 - MAIL MACHINE OPERATOR LOC: Oriented MAIL MACHINE OPERATOR Motor: Normal RUE, Normal LUE, Normal RLE, Normal LLE, Normal Face MAIL MACHINE OPERATOR Sensory: Normal: RUE, LUE, RLE, LLE, Face - Cardiac Rhythm: Regular Murmur: None JVD: No Carotid Bruit: No - Pulmonary Breath Sounds: bilateral Clear Respiratory Effort: Symmetrical Anesthesia Assess/Plan ASA Score: 3 (HTN CAD DM Obese) Modified [place] Scale for Level of Consciousness: Cooperative, oriented, and tranquil Anesthetic Plan: General Monitoring Plan: Standard Monitors Recovery Plan: PACU (Discussed GA, moderate risk for anesthesia and surgery, agrees to proceed)
[2018-01-03] MEDS ORDERED: *HR* Midazolam HCl 2 MG/2 ML VIAL ONE (19:07)
[2018-01-03] MEDS ORDERED: *HR* FentaNYL (PF) 100 MCG/2 ML VIAL ONE (19:07)
[2018-01-03] MEDS ORDERED: Dexamethasone 4 MG/ML VIAL ONE (19:08)
[2018-01-03] MEDS ORDERED: Ondansetron 4 MG/2 ML VIAL ONE (19:08)
[2018-01-03] MEDS ORDERED: Lidocaine -MPF 2% 2 ML VIAL ONE (19:08)
[2018-01-03] MEDS ORDERED: *HR* Propofol 200 MG/20 ML VIAL IVP ONE (19:08)
[2018-01-03] MEDS ORDERED: Acetaminophen IV 1,000 MG/100 ML INFUS..BTL ONE (19:10)
[2018-01-03] MEDS ORDERED: Famotidine 20 MG/2 ML VIAL ONE (19:11)
[2018-01-03] MEDS ORDERED: *HR* FentaNYL (PF) 100 MCG/2 ML VIAL IVP PRN (19:57)
[2018-01-03] MEDS ORDERED: *HR* Promethazine 25 MG/ML VIAL IVP PRN ×2 (19:57→21:06)
[2018-01-03] MEDS ORDERED: *HR* Meperidine 25 MG/ML SYRINGE IVP PRN (19:57)
[2018-01-03] MEDS ORDERED: Ondansetron 4 MG/2 ML VIAL IVP ONE (19:57)
[2018-01-03] MEDS ORDERED: Ringers Solution, Lactated 1,000 ML IVC SCH (20:00)
--- NOTE | 2018-01-03 20:02 | Orthopedic Operative Note ---
Date of procedure: 01/03/18 Pre-op diagnosis: Left intertrochanteric/subtrochanteric hip fracture Post-op diagnosis: same Procedure: Procedure: Left hip open reduction intramedullary nail fixation Estimated blood loss: 100 cc Hardware: Metal: 10 x 130 degree to 35 mm Synthes TFN, 110 mm mm helical blade, 36 mm distal locking bolt Operative procedure: The patient was brought to the operating room and placed on the operating room table. After general anesthesia was administered the well leg was place in the well leg johnasen and the operative leg was placed in the fracture leg johansen. All pressure points were padded appropriately. The operative extremity was prepped and draped in the sterile surgical fashion patient received IV antibiotic prior to skin incision. A standard direct lateral approach was made over the entry point of the greater trochanter, the incision was made through the skin and subcutaneous tissue hemostasis was obtained with Bovie cautery. Using careful sharp dissection the fascia was identified and incised, flouroscopic assistance was used to identify the entry point. The guidepin was placed at the entry point using fluroscopic assistance, it was over reamed with the proximal reamer. The 10 x 1 30 degree 235 mm nail was placed through the entry hole, across the fracture site into the distal fragment the position was confirmed with fluroscopy. A guide pin was placed through the proximal locking guide from the lateral femur through the nail across the fracture site into the femoral head, it was over reamed with the reamer. The 110 mm helical blade was placed over the guide pin through the nail into the femoral head, locked in place with the proximal locking bolt. 36 mm Distal locking bolt was placed through the distal locking guide. position of hardware and fracture reduction found to be acceptable with fluroscopic assistance. The wound was irrigated. The wound was closed by the PA. Fascia was closed with a running #2 PDS suture. The deep tissue was irrigated and closed deep with #1 PDS suture superficially with 0 PDS suture and skin was closed with skin johnson The patient was placed in a sterile dressing The patient was extubated and transferred to the recovery room in stable condition. Anesthesia: GETA Surgeon: Polo Hdz Was there an information technology assistant present: No Estimated blood loss (cc): 100 Condition: stable Disposition: PACU
[2018-01-03] MEDS ORDERED: Dextrose Gel 15 GM/37.5 ML TUBE PO PRN ×2 (21:06)
[2018-01-03] MEDS ORDERED: Naloxone 0.4 MG/ML INJ IVP PRN ×2 (21:06)
[2018-01-03] MEDS ORDERED: D5% in Water 1,000 ML IVC PRN (21:06)
[2018-01-03] MEDS ORDERED: OXYCODONE Oral CONC 10 MG/0.5 ML ORAL.SYG SL PRN ×2 (21:06)
[2018-01-03] MEDS ORDERED: Nitroglycerin 0.4 MG TAB.SUBL SL PRN (21:06)
[2018-01-03] MEDS ORDERED: *HR* Dextrose 50 % in Water (Syg) 50 ML SYRINGE IVP PRN (21:06)
[2018-01-03 21:27] LABS: Hematocrit 29.6 % (35.3-44.9); Hemoglobin 8.7 g/dL (11.5-15.4)
--- NOTE | 2018-01-03 21:29 | Anesthesia Evaluation Post Op ---
Date of Encounter: 01/03/18 Time of Encounter: 21:28 - Vital Signs Vital Signs: Vital Signs/O2 Sat, Most Current Temp Pulse Resp BP Pulse Ox 97.9 F 60 14 179/79 100 01/03/18 21:09 01/03/18 21:09 01/03/18 21:09 01/03/18 21:09 01/03/18 21:09 - Lungs Lungs: Clear Ascult./Percussion - Airway Airway: Non-obstructed - Cardiovascular Regular Rate - Mental Status Mental Status: Alert & Oriented, Answers Appropriately - Pain Pain Scale: 0 Pain Scale used: Numeric (1 - 10) - Nausea Vomiting Nausea Vomiting: Not Present - Hydration Hydration: NPO - Discharge PostOp Status: Transfer Patient to floor
[2018-01-04] MEDS ORDERED: CeFAZolin Pre 2,000 MG/100 ML 2,000 MG/100 ML BAG IVPB SCH
[2018-01-04] MEDS: ceFAZolin 2,000 MG in 0.9 % Sodium Chloride 100 ML IVPB SCH ×2 (00:10→09:53)
[2018-01-04] MEDS: Insulin LISPRO 300 UNITS/3 ML VIAL SQ SCH ×5 (01:11→20:28)
--- NOTE | 2018-01-04 06:19 | Orthopedics Progress Note ---
Date of Encounter: 01/04/18 Time of Encounter: 06:18 Subjective Interval history: PPatient was seen this morning doing well without complaints. Afebrile vital signs stable. Operative extremity: Neurovascularly intact Dressing clean dry and intact Calves nontender Assessment and plan: Continue with postoperative care Objective Vital signs: Vital Signs Temp Pulse Resp BP Pulse Ox 01/04/18 03:53 98.5 F 64 18 156/76 93 01/04/18 00:00 97.6 F 58 16 128/82 98 01/03/18 23:29 97.5 F L 58 18 134/74 98 01/03/18 22:00 98 01/03/18 21:09 97.9 F 60 14 179/79 100 01/03/18 20:54 98.7 F 66 16 173/62 96 01/03/18 20:44 98.6 F 64 16 168/60 98 01/03/18 20:34 98.6 F 66 16 180/56 97 01/03/18 20:24 98.6 F 65 16 178/57 98 01/03/18 15:00 98.8 F 58 18 184/68 98 01/03/18 09:40 98.2 F 78 16 156/78 96 01/03/18 07:00 98.5 F 73 16 164/73 95 Intake and Output 01/03/18 01/03/18 01/04/18 15:59 23:59 07:59 Output Total 500 / 500 100 / 100 Balance -500 / -500 -100 / -100 Output: Urine 500 / 500 Estimated Blood Loss 100 / 100 Other: # Voids 1 Blood Glucose* 138 161 182 - Labs CBC & BMP: 01/03/18 20:49 01/03/18 01:06 Labs: Abnormal lab results RBC 3.32 M/mcL (3.82-4.97) L 01/03/18 01:06 Hgb 8.7 g/dL (11.5-15.4) L 01/03/18 20:49 Hct 29.6 % (35.3-44.9) L 01/03/18 20:49 MCH 27.4 pg (28.0-33.3) L 01/03/18 01:06 MCHC 30.5 g/dL (31.6-35.5) L 01/03/18 01:06 RDW 15.8 % (11.5-14.5) H 01/03/18 01:06 Chloride 112 mEq/L (98-107) H 01/03/18 01:06 Est GFR (Non-Af Amer) 58 (> 60) L 01/03/18 01:06 Glucose 152 mg/dL (70-105) H 01/03/18 01:06 POC Glucose 182 mg/dL (70-99) H 01/04/18 00:50 B-Natriuretic Peptide 199 pg/mL (Less than 100) H 01/02/18 04:54 Serum Total Protein 5.6 g/dL (6.4-8.9) L 01/03/18 01:06 Albumin 3.1 g/dL (3.5-5.7) L 01/03/18 01:06 - VTE Documentation of Mechanical Device: Intermittent pneumatic compression device Consult Discharge Plan - Plan Referrals: Stacy Barcenas, [employer]OUGH AND TRUEING MACHINE OPERATOR [Primary Care Provider] -
[2018-01-04 06:37] LABS: Basophils % 0.4 %; Eosinophils # 0.1 K/mcL (0.0-0.6); Eosinophils % 0.9 %; Hematocrit 24.4 % (35.3-44.9); Hemoglobin 7.4 g/dL (11.5-15.4); Immature Granulocytes % 0.5 % (0-4); Lymphocytes # 1.4 K/mcL (0.6-4.6); Lymphocytes % 14.2 %; Mean Corpuscular HGB Conc 30.3 g/dL (31.6-35.5); Mean Corpuscular Hemoglobin 27.9 pg (28.0-33.3); Mean Corpuscular Volume 92.1 fL (83.0-100.0); Mean Platelet Volume 11.4 fL (9.4-12.4); Monocytes # 1.1 K/mcL (0.0-1.3); Monocytes % 11.1 %; Neutrophils # 7.2 K/mcL (1.6-8.9); Nucleated Red Blood Cells 0.2 /100 WBC (0); Platelet Count 270 K/mcL (140-400); Red Blood Count 2.65 M/mcL (3.82-4.97); Red Cell Distribution Width 15.9 % (11.5-14.5); Segmented Neutrophils % 72.9 %
[2018-01-04 07:02] LABS: BUN/Creatinine Ratio 23 (6-26); Blood Urea Nitrogen 24 mg/dL (8-23); Calcium 9.4 mg/dL (8.6-10.3); Carbon Dioxide 26 mEq/L (23-29); Chloride 111 mEq/L (98-107); Glucose 148 mg/dL (70-105); Osmolality,Calculated 301 (280-300); Potassium 4.4 mEq/L (3.5-5.1); Sodium 142 mEq/L (136-145); eGFR For African Americans > 60 (> 60); eGFR For Non-African Americans 53 (> 60)
[2018-01-04] MEDS: Doxycycline 100 MG in 0.9 % Sodium Chloride Mini Bag 100 ML IVPB SCH ×2 (07:03→18:43)
[2018-01-04] MEDS: Lisinopril 20 MG TABLET PO SCH (09:54)
[2018-01-04] MEDS: Furosemide 40 MG TABLET PO SCH (09:54)
[2018-01-04] MEDS: Lactobacillus 1 EACH CAP.SPRINK PO SCH (09:54)
[2018-01-04] MEDS ORDERED: Furosemide 20 MG/2 ML VIAL IVP ONE (13:25)
[2018-01-04] MEDS ORDERED: 0.9 % Sodium Chloride 250 ML ONE ×2 (15:29→23:37)
[2018-01-04] MEDS: Ketorolac 15 MG/ML VIAL IVP PRN (16:19)
--- NOTE | 2018-01-04 17:03 | Internal Med Progress Note ---
Date of Encounter: 01/04/18 Time of Encounter: 15:15 - Assessment and plan (1) Hip fracture, left Current Visit: Yes Status: Acute Assessment and plan: X-ray confirmed left hip fracture. Orthopedics consulted, patient underwent open reduction and intramedullary nail fixation, postoperative day 1. Noted to have blood loss anemia with hemoglobin dropped to 7.4. Will give 2 units PRBC transfusion and monitor hemoglobin closely. Postoperative wound care per orthopedics. Continue pain control with when necessary oxycodone. PT/OT evaluation noted, recommend ECF placement. office services clerk consulted. Qualifiers: Encounter type: initial encounter Fracture type: closed Qualified Code(s) : S72.002A - Fracture of unspecified part of neck of left femur, initial encounter for closed fracture (2) Left leg cellulitis Current Visit: Yes Status: Acute Assessment and plan: Improved. Continue IV doxycycline. (3) Diabetes mellitus type 2, noninsulin dependent Current Visit: Yes Status: Chronic Assessment and plan: Blood sugars fairly controlled. Continue Accu-Chek blood glucose monitoring with sliding scale insulin as needed. Diabetic diet. (4) Hypertension Current Visit: Yes Status: Chronic Assessment and plan: Blood pressure well controlled. Continue home medications. Qualifiers: Hypertension type: essential hypertension Qualified Code(s): I10 - Essential (primary) hypertension (5) DVT prophylaxis Current Visit: Yes Status: Acute Assessment and plan: EPCD; start Lovenox; (6) CAD (coronary artery disease) Current Visit: Yes Status: Chronic Assessment and plan: Restart ASA and Plavix; continue statin, beta graeme. Qualifiers: Coronary Disease-Associated Artery/Lesion type: [place] artery [place] vs. transplanted heart: [place] heart Associated angina: with stable angina Qualified Code(s): I25.118 - Atherosclerotic heart disease of [place] coronary artery with other forms of angina pectoris (7) CKD (chronic kidney disease), stage III Current Visit: Yes Status: Chronic Assessment and plan: Serum creatinine stable. - Time Spent With Patient Total time spent is greater than 50% in coordination of care (as documented) at patient's floor/unit and/or counseling patient: - Subjective Interval history: Reports feeling well. Left hip pain controlled with oral pain medications. Able to participate in physical therapy. - Constitutional Vitals: Temp Pulse Resp BP Pulse Ox 98.0 F 56 17 112/48 96 01/04/18 16:15 01/04/18 16:15 01/04/18 16:15 01/04/18 16:15 01/04/18 16:15 General appearance: Present: A&O X 3, answers questions appropriately - Respiratory Respiratory exam: Present: CTAB. Absent: accessory muscle use, rales, rhonchi, wheezes - Cardiovascular Cardiovascular exam: Present: RRR, +S1, +S2, systolic murmur. Absent: diastolic murmur, gallop, rubs - GI/Abdominal GI/Abdominal exam: Present: normal bowel sounds, soft (Obese), no peritoneal signs. Absent: distended, tenderness - Extremities Exam Extremities exam: Present: warm, radial pulses palpable and symmetrical. Absent : calf tenderness, cyanotic, pedal edema Additional comments: left lateral hip- surgical dressing intact, no bleeding/infection Internal Medicine: Result - Labs CBC & Chem 7: 01/04/18 06:28 01/04/18 06:28 Labs: Short CBC 01/03/18 01/04/18 Range/Units 20:49 06:28 WBC 9.9 (4.3-11.1) K/mcL Hgb 8.7 L 7.4 L (11.5-15.4) g/dL Hct 29.6 L 24.4 L (35.3-44.9) % Plt Count 270 (140-400) K/mcL Neutrophils # 7.2 (1.6-8.9) K/mcL BMP 01/04/18 06:28 Sodium 142 Potassium 4.4 Chloride 111 H Carbon Dioxide 26 BUN 24 H Creatinine 1.04 Glucose 148 H Calcium 9.4 - Impressions Impressions Hip X-Ray 01/03/18 19:17 IMPRESSION: Patient status post open reduction and internal fixation of an acute IT fracture of the proximal left femur, reduced and stabilized by a gamma nail. D/ / Norris Hernández MD / Norris Hernández MD Interpreting Provider: Norris Hernández MD Fluoroscopy 01/03/18 19:27 IMPRESSION: Intraprocedural fluoroscopic spot images as above. See separate procedure report for more information. D/ / Norris Hernández MD / Norris Hernández MD Interpreting Provider: Norris Hernández MD Hip X-Ray 01/03/18 19:27 IMPRESSION: Intraprocedural fluoroscopic spot images as above. See separate procedure report for more information. D/ / Norris Hernández MD / Norris Hernández MD Interpreting Provider: Norris Hernández MD - VTE Documentation of Mechanical Device: Intermittent pneumatic compression device Consult Discharge Plan - Plan Referrals: Stacy Barcenas, DURALUMIN METALWORKER [Primary Care Provider] -
[2018-01-05] MEDS ORDERED: Ketorolac 15 MG/ML VIAL IVP ONE (01:34)
[2018-01-05] MEDS ORDERED: *HR* Enoxaparin 40 MG/0.4 ML SYRINGE SQ SCH (06:00)
[2018-01-05 06:10] LABS: Basophils # 0.1 K/mcL (0.0-0.2); Basophils % 0.6 %; Eosinophils # 0.1 K/mcL (0.0-0.6); Hemoglobin 8.5 g/dL (11.5-15.4); Immature Granulocytes % 0.8 % (0-4); Lymphocytes # 1.6 K/mcL (0.6-4.6); Lymphocytes % 19.6 %; Mean Corpuscular HGB Conc 31.5 g/dL (31.6-35.5); Mean Corpuscular Hemoglobin 28.4 pg (28.0-33.3); Mean Corpuscular Volume 90.3 fL (83.0-100.0); Mean Platelet Volume 11.3 fL (9.4-12.4); Monocytes % 12.2 %; Neutrophils # 5.4 K/mcL (1.6-8.9); Platelet Count 197 K/mcL (140-400); Red Blood Count 2.99 M/mcL (3.82-4.97); Red Cell Distribution Width 15.3 % (11.5-14.5); Segmented Neutrophils % 65.8 %
[2018-01-05] MEDS: Lactobacillus 1 EACH CAP.SPRINK PO SCH (07:47)
[2018-01-05] MEDS: Insulin LISPRO 300 UNITS/3 ML VIAL SQ SCH ×2 (07:47→11:53)
[2018-01-05] MEDS: Lisinopril 20 MG TABLET PO SCH (07:48)
[2018-01-05] MEDS: Furosemide 40 MG TABLET PO SCH (07:48)
[2018-01-05] MEDS ORDERED: Aspirin Enteric Coated 81 MG Tablet PO SCH (09:00)
[2018-01-05] MEDS ORDERED: Doxycycline 100 MG in 0.9 % Sodium Chloride Mini Bag 100 ML IVPB SCH (11:00)
--- NOTE | 2018-01-05 14:40 | Discharge Summary ---
- NOTES TO OUTPATIENT PROVIDER Notes to Outpatient Provider: s/p ORIF of left hip fracture Date of Encounter: 01/05/18 Time of Encounter: 14:38 - Discharge Diagnosis (1) Hip fracture, left Priority: Primary Status: Acute Qualifiers: Encounter type: initial encounter Fracture type: closed Qualified Code(s) : S72.002A - Fracture of unspecified part of neck of left femur, initial encounter for closed fracture (2) Left leg cellulitis Priority: Primary Status: Acute (3) Diabetes mellitus type 2, noninsulin dependent Priority: Secondary Status: Chronic (4) Hypertension Priority: Secondary Status: Chronic Qualifiers: Hypertension type: essential hypertension Qualified Code(s): I10 - Essential (primary) hypertension (5) CAD (coronary artery disease) Priority: Secondary Status: Chronic Qualifiers: Coronary Disease-Associated Artery/Lesion type: [place] artery [place] vs. transplanted heart: [place] heart Associated angina: with stable angina Qualified Code(s): I25.118 - Atherosclerotic heart disease of [place] coronary artery with other forms of angina pectoris (6) CKD (chronic kidney disease), stage III Priority: Secondary Status: Chronic Hospital course: Ms. Reid is a 67 year old female with the above medical problems, who was admitted after mechanical fall and noted to have left hip fracture. Patient has history of coronary artery disease and received recent stent and noted to be on aspirin and Plavix. Cardiology was consulted, patient cleared for surgery with intermediate perioperative risk. Aspirin and Plavix were held prior to surgery, have been restarted post surgery. Orthopedics was consulted, patient underwent left hip open reduction and intramedullary nail fixation on 01/03/2018. Patient was noted to have mild postoperative anemia, received 2 units of PRBC with improvement in hemoglobin to 8.5. Case was discussed with orthopedic surgery, patient is stable for discharge at this time with DVT prophylaxis with aspirin 162 mg twice daily for at least 10 days. She will f/up as an outpatient with Orthopedics. Discharge discussed with: patient - Time Spent with Patient Total time spent providing and/or coordinating discharge services: Greater than 30 minutes (40 min) - Discharge Medications Prescriptions: Doxycycline 100 mg PO BID #4 capsule Oxycodone HCl 5 mg PO Q8H 5 Days #10 tablet Home Medications: Lactobacillus Acidophilus [Acidophilus] 1 each PO DAILY 03/22/16 [History] Atorvastatin [Lipitor] 40 mg PO DAILY 03/23/16 [History] Carvedilol 12.5 mg PO BID 03/23/16 [History] Lisinopril [Zestril] 40 mg PO DAILY 03/23/16 [History] Spironolactone [Aldactone] 25 mg PO DAILY 03/23/16 [History] Biotin 1,000 mcg PO DAILY 06/24/17 [History] Escitalopram [Lexapro] 20 mg PO DAILY 06/24/17 [History] Gabapentin [Neurontin] 100 mg PO HS 06/24/17 [History] Pioglitazone [Actos] 30 mg PO DAILY 06/24/17 [History] Nitroglycerin [Nitrostat] 0.4 mg SL PRN PRN #30 tab.subl 06/25/17 [Rx] Alendronate Sodium [Fosamax] 70 mg PO QWEEK 01/02/18 [History] Clopidogrel [Plavix] 75 mg PO DAILY 01/02/18 [History] Furosemide [Lasix] 40 mg PO DAILY 01/02/18 [History] Potassium Chloride [K-Tab ER] 20 meq PO DAILY 01/02/18 [History] Aspirin Enteric Coated [Aspirin EC] 162 mg PO BID 10 Days 01/05/18 [Rx] Doxycycline 100 mg PO BID #4 capsule 01/05/18 [Rx] Oxycodone HCl 5 mg PO Q8H 5 Days #10 tablet 01/05/18 [Rx] Allergies/Adverse Reactions: 3 Allergy/AdvReac Type Severity Reaction Status Date / Time cefdinir [From Omnicef] Allergy Itching Verified 06/25/17 07:21 codeine Allergy Hives Verified 03/22/16 15:27 morphine Allergy Hives Verified 03/22/16 15:27 ondansetron Allergy Vomiting Verified 06/25/17 07:20 [From Zofran (as hydrochloride)] acetaminophen [From Tylenol] AdvReac Vomiting Verified 03/22/16 15:27 Date of admission: 01/02/18 04:44 Primary care physician: Stacy Barcenas CNP Consults: 01/02/18 04:41 Consult to Cardiology [CONS] Routine Comment: Consulting Provider: Cardiology [facility] Reason for Consult: Pre-op evaluation, Pt has CHF, CAD s/p stent in Aug 06, c /o mild chest pain, hip fracture need surgery Call Completed: No 01/02/18 04:55 Consult to Orthopedic Surgery [CONS] Routine Consulting Provider: [facility] Reason for Consult: Left hip fracture. Dr Hdz was informed. Call Completed: Yes 01/03/18 21:06 Consult to Orthopedic Navigator [CONS] [CONS] Routine Consult to Fill Manager [CONS] Routine Reason for SW Consult: post -op hip fracture RT Post Op Consult [CONS] Routine 01/04/18 09:49 Consult to Physical Therapy [CONS] Routine Comment: Evaluate, develop and implement POC Reason for Consult: Discharge planning s/p left hip nailing Does patient have active BEDREST order?: No Is patient medically & hemodynamically stable?: Yes 01/04/18 09:51 Consult to Occupational Therapy [CONS] Routine Comment: Evaluate, develop and implement POC Reason for Consult: Discharge planning s/p left hip nailing. Does patient have active BEDREST order?: No Is patient medically & hemodynamically stable?: Yes Discharging clinician: Amena Owens Anticipated date of discharge: 01/05/18 - Constitutional Vitals: Temp Pulse Resp BP Pulse Ox 98.9 F 68 16 148/76 91 01/05/18 06:39 01/05/18 06:39 01/05/18 06:39 01/05/18 06:39 01/05/18 07:59 General appearance: Present: A&O X 3, answers questions appropriately - Cardiovascular Cardiovascular exam: Present: RRR, +S1, +S2, systolic murmur. Absent: diastolic murmur, gallop, rubs - Patient Status Disposition: Transfer SNF Condition: Good Functional capacity at discharge: uses cane/walker Overall status at discharge: patient is progressing back to baseline - Discharge Instructions Follow Up With: Lynn Gonzalez PAC [Physician Road Machinery Inspector] - 01/13/18 2:45 pm Additional Instructions: F/up with PCP in 1-2 weeks F/up with Orthopedics in 1 week - Diet and Activity Activity: as per physical therapy Diet: diabetic diet, low fat, low cholesterol, low salt diet - VTE Documentation of Mechanical Device: Intermittent pneumatic compression device
--- NOTE | 2018-01-05 14:46 | Physician Discharge Referral ---
ExtendedCare Referral Info Transfer To: [facility] Provider in Charge: Amena Owens Provider in Charge after Transfer: PCP Institutional Level of Care: Skilled - Diagnosis (1) Hip fracture, left Priority: Primary Status: Acute (2) Left leg cellulitis Priority: Primary Status: Acute (3) Diabetes mellitus type 2, noninsulin dependent Priority: Secondary Status: Chronic (4) Hypertension Priority: Secondary Status: Chronic (5) CAD (coronary artery disease) Priority: Secondary Status: Chronic (6) CKD (chronic kidney disease), stage III Priority: Secondary Status: Chronic Expected Duration of Placement: 3 weeks Prognosis: Good Aware of Diagnosis: Patient Aware of Prognosis: Patient - Transfer Medications Home Medications: Lactobacillus Acidophilus [Acidophilus] 1 each PO DAILY 03/22/16 [History] Aspirin Enteric Coated [Aspirin EC] 81 mg PO DAILY 03/23/16 [History] Atorvastatin [Lipitor] 40 mg PO DAILY 03/23/16 [History] Carvedilol 12.5 mg PO BID 03/23/16 [History] Lisinopril [Zestril] 40 mg PO DAILY 03/23/16 [History] Spironolactone [Aldactone] 25 mg PO DAILY 03/23/16 [History] Biotin 1,000 mcg PO DAILY 06/24/17 [History] Escitalopram [Lexapro] 20 mg PO DAILY 06/24/17 [History] Gabapentin [Neurontin] 100 mg PO HS 06/24/17 [History] Pioglitazone [Actos] 30 mg PO DAILY 06/24/17 [History] Nitroglycerin [Nitrostat] 0.4 mg SL PRN PRN #30 tab.subl 06/25/17 [Rx] Alendronate Sodium [Fosamax] 70 mg PO QWEEK 01/02/18 [History] Clopidogrel [Plavix] 75 mg PO DAILY 01/02/18 [History] Furosemide [Lasix] 40 mg PO DAILY 01/02/18 [History] Potassium Chloride [K-Tab ER] 20 meq PO DAILY 01/02/18 [History] Allergies/Adverse Reactions: 3 Allergy/AdvReac Type Severity Reaction Status Date / Time cefdinir [From Omnicef] Allergy Itching Verified 06/25/17 07:21 codeine Allergy Hives Verified 03/22/16 15:27 morphine Allergy Hives Verified 03/22/16 15:27 ondansetron Allergy Vomiting Verified 06/25/17 07:20 [From Zofran (as hydrochloride)] acetaminophen [From Tylenol] AdvReac Vomiting Verified 03/22/16 15:27 - Respiratory Orders Smoking Cessation: Smoking cessation has been advised. For more information, call the [place] Tobacco Quit Line at 3-230-XNQW-NOW. - Advance Directives Code Status: Full Code - Mobility Orders Ambulate - Rehabiliation Orders Rehab Potential: Good Rehab Orders: ROM Exercises, Evaluation for Physical Therapy, Evaluation for Occupational Therapy - Diet Orders No Concentrated Sweets (diabetic), Cardiac CERTIFICATION: I certify that the transfer of the above named patient to an Extended Care Facility is necessary for the continuing treatment of the diagnosis listed. The above information is true and accurate reflection of patient's current condition. Confidential - Redisclosure prohibited without a patient's written consent.
[2018-01-05 15:11] VITALS: BP 167/60
--- NOTE | 2018-01-06 08:02 | Event Note ---
Date of Encounter: 01/04/18 Time of Encounter: 12:00 PCR- POD#1 L Hip IM nail 01/03/18 Wilder PCR - Patient seen at bedside. Labwork and medications reviewed. Pain control: Adequate Participating in PT. All questions and concerns addressed. Educated on use of incentive spirometer, ambulation, and hydration. Patient educated on post-operative restrictions and care. Addressed: WBTT. D/C plan: ECF - patient requesting 4 winds
--- NOTE | 2018-01-06 08:03 | Event Note ---
Date of Encounter: 01/05/18 Time of Encounter: 12:00 PCR- POD#2 L Hip IM nail 01/03/18 Wilder PCR - Patient seen at bedside. Labwork and medications reviewed. Pain control: Adequate Participating in PT. All questions and concerns addressed. Educated on use of incentive spirometer, ambulation, and hydration. Patient educated on post-operative restrictions and care. Addressed: WBTT. D/C plan: ECF - 4 winds today
== END 2018-01-05 18:36 | DRG 481 ==
LOC: 3NENU → SUATTDRO 04:44
PROVIDERS: ADMIT Internal Medicine; ATTEND Internal Medicine

== ENCOUNTER 2020-10-06 03:11 | Inpatient (IN) ==
[2020-10-06] MEDS ORDERED: Acetaminophen 325 MG TABLET PO PRN ×2 (06:05→09:08)
[2020-10-06] MEDS ORDERED: Ondansetron ODT 4 MG TAB.RAPDIS SL PRN ×2 (06:05→09:08)
[2020-10-06] MEDS ORDERED: Naloxone 0.4 MG/ML INJ IVP PRN ×2 (06:05→09:08)
[2020-10-06] MEDS ORDERED: Ipratropium/Albuterol Neb 3 ML IH PRN ×2 (06:07→09:08)
[2020-10-06] MEDS ORDERED: 0.9 % Sodium Chloride 1,000 ML IVC SCH ×2 (06:15→09:08)
[2020-10-06] MEDS ORDERED: Dextrose Gel 15 GM/37.5 ML TUBE PO PRN ×4 (06:54→09:08)
[2020-10-06] MEDS ORDERED: D5% in Water 1,000 ML IVC PRN ×2 (06:54→09:08)
[2020-10-06] MEDS ORDERED: *HR* Dextrose 50 % in Water (Vial) 50 ML VIAL IVP PRN ×2 (06:54→09:08)
[2020-10-06] MEDS ORDERED: Insulin LISPRO 300 UNITS/3 ML VIAL SUBQ SCH ×2 (07:00→07:30)
[2020-10-06] MEDS ORDERED: Ondansetron 4 MG/2 ML VIAL IVP PRN (07:08)
[2020-10-06] MEDS ORDERED: *HR* OxyCODONE Immed Rel 5 MG TABLET PO PRN (07:08)
[2020-10-06 07:18] LABS: Hematocrit 38.5 % (35.3-44.9); Hemoglobin 11.4 g/dL (11.5-15.4); Mean Corpuscular HGB Conc 29.6 g/dL (31.6-35.5); Mean Corpuscular Volume 91.2 fL (83.0-100.0); Mean Platelet Volume 11.3 fL (9.4-12.4); Platelet Count 330 K/mcL (140-400); Red Blood Count 4.22 M/mcL (3.82-4.97); Red Cell Distribution Width 14.2 % (11.5-14.5); White Blood Count 26.3 K/mcL (4.3-11.1)
[2020-10-06] MEDS ORDERED: Acetaminophen IV 1,000 MG/100 ML BAG IVPB ONE (07:22)
[2020-10-06] MEDS ORDERED: Famotidine 20 MG/2 ML VIAL ONE (07:22)
[2020-10-06 07:23] LABS: INR 1.6; Prothrombin Time 18.3 Seconds (9.4-12.1)
[2020-10-06] MEDS ORDERED: *HR* Propofol 200 MG/20 ML VIAL IVP ONE (07:27)
[2020-10-06] MEDS ORDERED: Ondansetron 4 MG/2 ML VIAL ONE (07:28)
[2020-10-06] MEDS ORDERED: *HR* FentaNYL (PF) 100 MCG/2 ML VIAL ONE (07:28)
[2020-10-06] MEDS ORDERED: Lidocaine -MPF 2% 2 ML VIAL ONE (07:28)
[2020-10-06] MEDS ORDERED: Dexamethasone 4 MG/ML VIAL ONE (07:28)
[2020-10-06 07:39] LABS: Albumin 3.6 g/dL (3.5-5.7); Albumin/Globulin Ratio 1.1 (1.1-2.2); Bilirubin,Total 1.2 mg/dL (0.3-1.0); Calcium 10.5 mg/dL (8.6-10.3); Globulin 3.3 g/dL (2.4-3.5); Magnesium 1.2 mg/dL (1.6-2.6); Phosphorous 2.4 mg/dL (2.7-4.5); Potassium 4.9 mEq/L (3.5-5.1); Total Protein 6.9 g/dL (6.4-8.9)
[2020-10-06] MEDS ORDERED: Isovue-300 50ML VIAL ONE (07:47)
[2020-10-06 07:52] LABS: Basophils # 0.3 K/mcL (0.0-0.2); Lymphocytes # 1.3 K/mcL (0.6-4.6); Monocytes # 0.8 K/mcL (0.0-1.3); Neutrophils # 23.9 K/mcL (1.6-8.9); Platelet Estimate Normal (Normal)
[2020-10-06] MEDS ORDERED: carvediloL 6.25 MG TABLET PO SCH (08:00)
[2020-10-06] MEDS ORDERED: *HR* PHENYLEPHRINE 1,000 MCG/10 ML SYRINGE IVP ONE (08:18)
[2020-10-06 08:32] LABS: Bacteria,Urine Few per hpf (None-Few); Bilirubin,Urine Negative (Negative); Blood,Urine Moderate (Negative); Clarity,Urine Turbid (Clear); Color,Urine Yellow (Yellow); Glucose,Urine (UA) Normal (Normal); Hyaline Casts,Urine Few per lpf (None Seen); Ketones,Urine Negative (Negative); Leukocyte Esterase,Urine Large (Negative); Mucus,Urine Few per lpf (None-Few); Nitrite,Urine Negative (Negative); Protein,Urine 70 mg/dL (Neg-Trace); RBC,Urine 30-50 per hpf (0-3); Specific Gravity,Urine 1.011 (1.010-1.025); Squamous Epithelial Cell,Urine Few per hpf (None-Few); Urobilinogen,Urine Normal (Normal); WBC,Urine TNTC per hpf (0-3)
[2020-10-06] MEDS ORDERED: Nitroglycerin 0.4 MG TAB.SUBL SL PRN (09:08)
[2020-10-06] MEDS ORDERED: Aspirin Enteric Coated 81 MG Tablet PO SCH (09:08)
[2020-10-06] MEDS: Furosemide 40 MG TABLET PO SCH (09:54)
[2020-10-06] MEDS: lisinopriL 20 MG TABLET PO SCH (09:56)
[2020-10-06] MEDS: Insulin LISPRO 300 UNITS/3 ML VIAL SUBQ SCH ×3 (12:37→22:41)
[2020-10-06] MEDS: carvediloL 6.25 MG TABLET PO SCH (17:26)
[2020-10-06] MEDS: Piperacillin/Tazobactam 3.375 GM in 0.9 % Sodium Chloride Mini Bag 100 ML IVPB SCH (17:27)
[2020-10-06] MEDS ORDERED: Piperacillin/Tazobactam 3.375 GM in 0.9 % Sodium Chloride Mini Bag 100 ML IVPB SCH (18:00)
[2020-10-06] MEDS: Gabapentin 100 MG CAPSULE PO SCH (22:41)
[2020-10-07 05:58] LABS: Basophils % 0.1 %; Hematocrit 35.1 % (35.3-44.9); Hemoglobin 10.4 g/dL (11.5-15.4); Immature Granulocytes % 0.9 % (0-4); Lymphocytes # 0.7 K/mcL (0.6-4.6); Lymphocytes % 3.2 %; Mean Corpuscular HGB Conc 29.6 g/dL (31.6-35.5); Mean Corpuscular Hemoglobin 27.2 pg (28.0-33.3); Mean Corpuscular Volume 91.6 fL (83.0-100.0); Mean Platelet Volume 11.4 fL (9.4-12.4); Monocytes # 0.6 K/mcL (0.0-1.3); Monocytes % 2.8 %; Neutrophils # 20.6 K/mcL (1.6-8.9); Nucleated Red Blood Cells 0.1 /100 WBC (0); Platelet Count 338 K/mcL (140-400); Red Blood Count 3.83 M/mcL (3.82-4.97); Red Cell Distribution Width 14.6 % (11.5-14.5); White Blood Count 22.2 K/mcL (4.3-11.1)
[2020-10-07] MEDS: Piperacillin/Tazobactam 3.375 GM in 0.9 % Sodium Chloride Mini Bag 100 ML IVPB SCH ×2 (06:08→18:00)
[2020-10-07 06:23] LABS: Calcium 9.3 mg/dL (8.6-10.3); Potassium 4.9 mEq/L (3.5-5.1)
[2020-10-07] MEDS ORDERED: 0.9 % Sodium Chloride 1,000 ML IVC SCH (08:15)
[2020-10-07] MEDS: Insulin LISPRO 300 UNITS/3 ML VIAL SUBQ SCH ×4 (08:37→20:31)
[2020-10-07] MEDS: Furosemide 40 MG TABLET PO SCH (08:38)
[2020-10-07] MEDS: carvediloL 6.25 MG TABLET PO SCH ×2 (08:38→18:01)
[2020-10-07] MEDS: lisinopriL 20 MG TABLET PO SCH (08:38)
[2020-10-07] MEDS: Gabapentin 100 MG CAPSULE PO SCH (20:27)
[2020-10-08 02:19] LABS: Sodium, Urine 81.9 mEq/L
[2020-10-08 04:36] LABS: Basophils # 0.1 K/mcL (0.0-0.2); Basophils % 0.2 %; Hematocrit 32.8 % (35.3-44.9); Hemoglobin 9.9 g/dL (11.5-15.4); Immature Granulocytes % 1.6 % (0-4); Lymphocytes # 0.7 K/mcL (0.6-4.6); Lymphocytes % 3.5 %; Mean Corpuscular HGB Conc 30.2 g/dL (31.6-35.5); Mean Corpuscular Hemoglobin 27.5 pg (28.0-33.3); Mean Corpuscular Volume 91.1 fL (83.0-100.0); Mean Platelet Volume 11.4 fL (9.4-12.4); Monocytes # 1.3 K/mcL (0.0-1.3); Monocytes % 6.5 %; Neutrophils # 18.2 K/mcL (1.6-8.9); Nucleated Red Blood Cells 0.1 /100 WBC (0); Platelet Count 357 K/mcL (140-400); Red Cell Distribution Width 14.6 % (11.5-14.5); Segmented Neutrophils % 88.2 %; White Blood Count 20.6 K/mcL (4.3-11.1)
[2020-10-08 04:54] LABS: Calcium 8.6 mg/dL (8.6-10.3); Potassium 5.2 mEq/L (3.5-5.1)
[2020-10-08] MEDS: Piperacillin/Tazobactam 3.375 GM in 0.9 % Sodium Chloride Mini Bag 100 ML IVPB SCH ×2 (09:24→20:35)
[2020-10-08] MEDS: Insulin LISPRO 300 UNITS/3 ML VIAL SUBQ SCH ×4 (09:25→20:37)
[2020-10-08] MEDS: Furosemide 40 MG TABLET PO SCH (09:25)
[2020-10-08] MEDS: carvediloL 6.25 MG TABLET PO SCH ×2 (09:25→16:52)
[2020-10-08] MEDS: lisinopriL 20 MG TABLET PO SCH (09:26)
[2020-10-08] MEDS: Gabapentin 100 MG CAPSULE PO SCH (20:35)
[2020-10-09] MEDS ORDERED: *HR* Labetalol 20 MG/4 ML SYRINGE IVP PRN (01:08)
[2020-10-09 04:46] LABS: Basophils # 0.1 K/mcL (0.0-0.2); Basophils % 0.8 %; Eosinophils # 0.1 K/mcL (0.0-0.6); Eosinophils % 0.9 %; Hemoglobin 9.7 g/dL (11.5-15.4); Lymphocytes # 0.9 K/mcL (0.6-4.6); Lymphocytes % 7.9 %; Mean Corpuscular HGB Conc 30.3 g/dL (31.6-35.5); Mean Corpuscular Hemoglobin 27.4 pg (28.0-33.3); Mean Corpuscular Volume 90.4 fL (83.0-100.0); Monocytes # 1.2 K/mcL (0.0-1.3); Monocytes % 10.3 %; Nucleated Red Blood Cells 0.2 /100 WBC (0); Platelet Count 325 K/mcL (140-400); Red Blood Count 3.54 M/mcL (3.82-4.97); Red Cell Distribution Width 14.7 % (11.5-14.5); Segmented Neutrophils % 76.1 %; White Blood Count 11.8 K/mcL (4.3-11.1)
[2020-10-09 05:13] LABS: Calcium 9.2 mg/dL (8.6-10.3); Potassium 5.3 mEq/L (3.5-5.1)
[2020-10-09] MEDS: Insulin LISPRO 300 UNITS/3 ML VIAL SUBQ SCH ×4 (08:07→21:56)
[2020-10-09] MEDS: carvediloL 6.25 MG TABLET PO SCH ×2 (08:48→18:01)
[2020-10-09] MEDS: Furosemide 40 MG TABLET PO SCH (08:48)
[2020-10-09] MEDS: lisinopriL 20 MG TABLET PO SCH (08:48)
[2020-10-09] MEDS: Piperacillin/Tazobactam 3.375 GM in 0.9 % Sodium Chloride Mini Bag 100 ML IVPB SCH ×2 (08:48→21:56)
[2020-10-09] MEDS: SODIUM ZIRCONIUM CYCLOSILICATE 5 GM POWD.PACK PO SCH (08:48)
[2020-10-09] MEDS: Gabapentin 100 MG CAPSULE PO SCH (21:56)
[2020-10-10 01:45] LABS: Hematocrit 33.5 % (35.3-44.9); Hemoglobin 9.9 g/dL (11.5-15.4); Mean Corpuscular HGB Conc 29.6 g/dL (31.6-35.5); Mean Corpuscular Hemoglobin 26.5 pg (28.0-33.3); Mean Corpuscular Volume 89.8 fL (83.0-100.0); Nucleated Red Blood Cells 0.2 /100 WBC (0); Platelet Count 338 K/mcL (140-400); Red Blood Count 3.73 M/mcL (3.82-4.97); White Blood Count 12.5 K/mcL (4.3-11.1)
[2020-10-10 02:08] LABS: Calcium 9.4 mg/dL (8.6-10.3); Potassium 4.7 mEq/L (3.5-5.1)
[2020-10-10 02:21] LABS: Lymphocytes # 1.3 K/mcL (0.6-4.6); Monocytes # 1.8 K/mcL (0.0-1.3); Neutrophils # 8.8 K/mcL (1.6-8.9)
[2020-10-10 02:22] LABS: Anisocytosis 1+ (Not Present); Platelet Estimate Normal (Normal); Toxic Granulation Present (Not Present)
[2020-10-10] MEDS: lisinopriL 20 MG TABLET PO SCH (09:27)
[2020-10-10] MEDS: SODIUM ZIRCONIUM CYCLOSILICATE 5 GM POWD.PACK PO SCH (09:27)
[2020-10-10] MEDS: carvediloL 6.25 MG TABLET PO SCH ×2 (09:27→17:11)
[2020-10-10] MEDS: Piperacillin/Tazobactam 3.375 GM in 0.9 % Sodium Chloride Mini Bag 100 ML IVPB SCH (09:27)
[2020-10-10] MEDS: Furosemide 40 MG TABLET PO SCH (09:28)
[2020-10-10] MEDS: Insulin LISPRO 300 UNITS/3 ML VIAL SUBQ SCH ×4 (09:30→22:02)
[2020-10-10] MEDS: Amoxicillin/Clavulanate 500 MG TABLET PO SCH ×2 (11:05→17:11)
[2020-10-10] MEDS: *HR* Heparin 5,000 UNIT/ML VIAL SQ SCH (17:11)
[2020-10-10] MEDS: Gabapentin 100 MG CAPSULE PO SCH (22:05)
[2020-10-11 03:38] LABS: Hematocrit 32.5 % (35.3-44.9); Hemoglobin 9.7 g/dL (11.5-15.4); Mean Corpuscular HGB Conc 29.8 g/dL (31.6-35.5); Mean Corpuscular Hemoglobin 26.6 pg (28.0-33.3); Mean Platelet Volume 10.7 fL (9.4-12.4); Nucleated Red Blood Cells 0.2 /100 WBC (0); Platelet Count 418 K/mcL (140-400); Red Blood Count 3.65 M/mcL (3.82-4.97); Red Cell Distribution Width 14.7 % (11.5-14.5); White Blood Count 17.7 K/mcL (4.3-11.1)
[2020-10-11 04:11] LABS: Lymphocytes # 2.1 K/mcL (0.6-4.6); Monocytes # 1.1 K/mcL (0.0-1.3); Neutrophils # 14.5 K/mcL (1.6-8.9)
[2020-10-11 04:12] LABS: Reactive Lymphocytes Present (Not Present); Toxic Granulation Present (Not Present)
[2020-10-11 05:35] LABS: Potassium 4.5 mEq/L (3.5-5.1)
[2020-10-11] MEDS: *HR* Heparin 5,000 UNIT/ML VIAL SQ SCH (06:02)
[2020-10-11] MEDS: lisinopriL 20 MG TABLET PO SCH (08:53)
[2020-10-11] MEDS: Furosemide 40 MG TABLET PO SCH (08:53)
[2020-10-11] MEDS: carvediloL 6.25 MG TABLET PO SCH (08:53)
[2020-10-11] MEDS: Amoxicillin/Clavulanate 500 MG TABLET PO SCH (08:53)
[2020-10-11] MEDS: Insulin LISPRO 300 UNITS/3 ML VIAL SUBQ SCH ×2 (08:54→11:31)
[2020-10-11] MEDS: SODIUM ZIRCONIUM CYCLOSILICATE 5 GM POWD.PACK PO SCH (08:54)
[2020-10-11 11:02] VITALS: BP 148/56
[2020-10-11 12:52] LABS: Adenovirus Not Detected (Not Detect); Bordetella Pertussis Not Detected (Not Detect); Chlamydophila pneumoniae Not Detected (Not Detect); Coronavirus 229E Not Detected (Not Detect); Coronavirus HKU1 Not Detected (Not Detect); Coronavirus NL63 Not Detected (Not Detect); Coronavirus OC43 Not Detected (Not Detect); Human Metapneumovirus Not Detected (Not Detect); Human Rhinovirus/Enterovirus Not Detected (Not Detect); Influenza A Subtype 2009 H1 Not Detected (Not Detect); Influenza B Not Detected (Not Detect); Mycoplasma pneumoniae Not Detected (Not Detect); Parainfluenza Virus 1 Not Detected (Not Detect); Parainfluenza Virus 2 Not Detected (Not Detect); Parainfluenza Virus 3 Not Detected (Not Detect); Parainfluenza Virus 4 Not Detected (Not Detect); Respiratory Syncytial Virus Not Detected (Not Detect); SARS-CoV-2 Not Detected (Not Detect)
== END 2020-10-11 14:26 | DRG 853 ==
LOC: 3NENU → SUATTDRO 05:52
PROVIDERS: ADMIT Internal Medicine; ATTEND Family Medicine